=== PATIENT | male | born 1955 | race Caucasian/White ===

== ENCOUNTER 2017-09-18 17:46 | Emergency (ER) | payer OTHER ==
--- NOTE | 2017-09-18 17:51 | PDOC ---
Rapid Medical Evaluation Time Seen by Provider: 09/18/17 17:48 Medical Evaluation: Allergies Allergy/AdvReac Type Severity Reaction Status Date / Time No Known Allergies Allergy Verified 04/06/16 23:09 09/18/17 17:48 I have performed a brief in-person evaluation of this patient. The patient presents with a chief complaint of: gradually worsening frontal headache since this am, vomit x 2 after 3pm, no visual changes , no dizziness Pertinent physical exam findings: vss I have ordered the following: none The patient will proceed to the ED for further evaluation.
[2017-09-18 17:52] VITALS: BP 139/85; PULSE 84; TEMP 97.7; BMI 28.3
--- NOTE | 2017-09-18 18:22 | PDOC ---
History of Present Illness - General Chief Complaint: Headache Stated Complaint: HEADACHE Time Seen by Provider: 09/18/17 17:48 - History of Present Illness Initial Comments: 09/18/17 20:00 The patient is a 62 year old male with a history of HTN, DM, HLD, CAD who presents for evaluation of headache with associated nausea and vomiting. The patient reports gradual onset of a throbbing frontal headache beginning at 12pm today. He noted some associated nausea and two episodes of non-bilious, non- bloody vomiting prompting his presentation to the ED today. He denies photophobia or phonophobia. He denies fevers, chills, SOB, chest pain, numbness , weakness, abdominal pain, or changes with urination or bowel movements. Past History - Past Medical History Allergies/Adverse Reactions: Allergies Allergy/AdvReac Type Severity Reaction Status Date / Time No Known Allergies Allergy Verified 09/18/17 17:49 Home Medications: Ambulatory Orders Amlodipine Besylate 10 mg PO DAILY 04/06/16 Lisinopril [Prinivil -] 40 mg PO DAILY 04/06/16 Metformin HCl [Metformin HCl ER] 500 mg PO BID 04/06/16 Aspirin [ASA -] 81 mg PO DAILY 09/18/17 Atorvastatin Ca [Lipitor] 80 mg PO HS 09/18/17 Cholecalciferol (Vitamin D3) [Vitamin D3] 5,000 unit PO DAILY 09/18/17 Clopidogrel Bisulfate [Clopidogrel] 75 mg PO DAILY 09/18/17 Metoprolol Succinate [Toprol Xl -] 25 mg PO DAILY 09/18/17 Cardiac Disorders: Yes ("MINOR HEART ATTACK") CVA: No COPD: No DVT: No Diabetes: Yes HTN: Yes Hypercholesterolemia: Yes - Immunization History Immunization Up to Date: Yes - Suicide/Smoking/Psychosocial Hx Smoking Status: No Smoking History: Never smoked Have you smoked in the past 12 months: No Number of Cigarettes Smoked Daily: 0 Cigars Per Day: 0 Information on smoking cessation initiated: No Hx Alcohol Use: No Drug/Substance Use Hx: No Substance Use Type: None Review of Systems - Review of Systems Comments:: 09/18/17 20:03 Constitutional: No fevers, chills, fatigue, malaise HEENT: No Rhinorrhea, nasal congestion, visual changes Cardiovascular: No chest pain, syncope, palpitations, lightheadedness Respiratory: No Cough, SOB, Hemoptysis, Gastrointestinal: Nausea, vomiting. No Abdominal pain, Constipation, Diarrhea, Melena Genitourinary: No Dysuria, Frequency, Urgency, Hesitancy, Hematuria, Flank pain Musculoskeletal: No Myalgia, arthralgia Skin: No rashes, bruising, pallor Neurologic: Headache. No Dizziness, Numbness, Weakness, or Tingling Psychiatric: No Hallucinations. No SI or HI *Physical Exam - Vital Signs Last Vital Signs Temp Pulse Resp BP Pulse Ox 97.7 F 84 16 139/85 97 09/18/17 17:49 09/18/17 17:49 09/18/17 17:49 09/18/17 17:49 09/18/17 17:49 - Physical Exam Comments: 09/18/17 20:04 General Appearance: Nourished. No Apparent Distress HEENT: EOMI, GWENDOLYN. No Pharyngeal Erythema, Tonsillar Exudate, Tonsillar Erythema Neck: No Cervical Lymphadenopathy Respiratory/Chest: Lungs Clear, Normal Breath Sounds. No Crackles, Rales, Rhonchi, Wheezing Cardiovascular: Regular Rhythm, Regular Rate. No Murmur, Gallops, Rubs Gastrointestinal/Abdominal: Normal Bowel Sounds, Soft. No Guarding, Rebound, Tenderness Musculoskeletal: No CVA Tenderness Extremity: Normal Capillary Refill Integumentary: Normal Color, Dry, Warm Neurologic: interactive video technician II-XII NML intact, Fully Oriented, Alert, Normal Mood/Affect, Normal Response, Motor Strength 5/5. Normal Finger to Nose and Heel to Guy ED Treatment Course - LABORATORY CBC & Chemistry Diagram: 09/18/17 19:00 09/18/17 19:00 Medical Decision Making - Medical Decision Making 09/18/17 20:04 The patient is a 62 year old male with a history of HTN, DM, HLD, CAD who presents for evaluation of headache with associated nausea and vomiting. Differential includes but is not limited to: Migraine headache, acs, infectious , metabolic derangement. Given the patient's normal physical exam and history of gradual onset headache, it is likely his symptoms are due to a migraine headache. However, given his comorbidities, we will obtain a cbc, cmp, troponin , and EKG to evaluate for other etiologies. We will treat his symptoms with tylenol, reglan, and benadryl here in the ED. We will continue to monitor and reassess. 09/18/17 21:28 The patient reports significant improvement in his symptoms. CBC, cmp, troponin , EKG are unremarkable. It is likely the patient's symptoms were due to a migraine headache. We are comfortable discharging the patient home at this time with primary care provider follow up. We discussed the results and the plan with the patient who voiced understanding and is agreeable with the plan. *DC/Admit/Observation/Transfer Diagnosis at time of Disposition: Headache Qualifiers: Headache type: unspecified Headache chronicity pattern: unspecified pattern Intractability: not intractable Qualified Code(s): R51 - Headache - Discharge Dispostion Disposition: HOME Condition at time of disposition: Improved Admit: No - Referrals Referrals: Remi Ibarra MD [Primary Care Provider] - - Patient Instructions Printed Discharge Instructions: DI for Migraine Additional Instructions: Please return to the ER if you experience concerning or worsening symptoms including numbness or weakness, chest pain, or difficulty breathing. You were seen in the ER for headache. Your lab results were all normal. You may use ibuprofen as needed at home for pain management. It is important that you call to schedule a follow up appointment with your primary care provider in 3-4 days to discuss your ER visit and further management of your symptoms. Por favor regrese a la romaine de emergencias si experimenta o empeora los sntomas , incluyendo entumecimiento o debilidad, dolor torcico o dificultad respiratoria. Te vieron en urgencias por dolor de rosalia. Los resultados de aleman laboratorio betsey normales. Usted puede usar ibuprofeno wil sea necesario en casa para el manejo del dolor. Es importante que llame para programar robe freddy de seguimiento con alemna proveedor de atencin primaria en 3-4 wilkerson para discutir aleman visita de ER y la administracin posterior de joss sntomas. - Post Discharge Activity
[2017-09-18] MEDS ORDERED: METOCLOPRAMIDE HCL INJECTION 10 MG/2 ML VIAL IVPUSH ONE (18:41)
[2017-09-18] MEDS ORDERED: ACETAMINOPHEN 325 MG TABLET (FP) PO ONE (18:41)
[2017-09-18] MEDS ORDERED: METOCLOPRAMIDE HCL INJECTION 10 MG/2 ML VIAL ONE (18:54)
[2017-09-18] MEDS ORDERED: ACETAMINOPHEN 325 MG TABLET (FP) ONE (18:54)
--- NOTE | 2017-09-18 19:13 | PDOC ---
Attending Attestation - Resident Resident Name: Alverto Yu - ED Attending Attestation I have performed the following: I have examined & evaluated the patient, The case was reviewed & discussed with the resident, I agree w/resident's findings & plan, Exceptions are as noted - HPI HPI: 09/18/17 19:11 62 yo Male presents with headache that started today and he vomited. the headache is frontal headache,no visual changes,no chest pain,no fever,no chills, no neck pain. Patient has a history of hypertension associated take his high blood pressure medicines in the morning. He did not take anything [id number] or prescription to relieve his headache pain prior to arrival 09/18/17 21:55
[2017-09-18 19:25] LABS: BASOPHIL 1.5 % (0-2.0); EOSINOPHIL 1.2 % (0-4.5); MCH 28.4 pg (25.7-33.7); MCHC 33.4 g/dl (32.0-35.9); MEAN CELL VOLUME 85.1 fl (80-96); MEAN PLT VOLUME 8.8 fl (7.5-11.1); NEUTROPHILS 64.8 % (42.8-82.8); PLATELET COUNT 250 K/MM3 (134-434)
[2017-09-18 21:01] LABS: ALBUMIN 3.9 g/dl (3.4-5.0); ANION GAP 8 (8-16); CALCIUM 9.2 mg/dL (8.5-10.1); CO2 28 mmol/L (21-32); CREATININE 0.8 mg/dL (0.7-1.3); GLUCOSE,RANDOM 113 mg/dL (74-106); SGOT/AST 13 U/L (15-37); SGPT/ALT 27 U/L (12-78)
[2017-09-18 21:06] LABS: ALK PHOS 79 U/L (45-117); BILIRUBIN,TOTAL 0.5 mg/dL (0.2-1.0); CPK 102 IU/L (39-308); TOT PROT 7.6 g/dl (6.4-8.2); TROPONIN I < 0.02 ng/ml (0.00-0.05)
--- NOTE | 2017-09-19 13:07 | EKG ---
Test Reason : Blood Pressure : / mmHG Vent. Rate : 073 BPM Atrial Rate : 073 BPM P-R Int : 160 ms QRS Dur : 094 ms QT Int : 344 ms P-R-T Axes : 046 020 -19 degrees QTc Int : 378 ms NORMAL SINUS RHYTHM T WAVE ABNORMALITY, CONSIDER INFERIOR ISCHEMIA ABNORMAL ECG WHEN COMPARED WITH ECG OF 06-APR-2016 23:08, NO SIGNIFICANT CHANGE WAS FOUND Confirmed by DOUGLAS VILA MD ([id number]) on 09/19/2017 1:07:23 PM Referred By: Confirmed By:DOUGLAS VILA MD
== END 2017-09-18 22:01 | disposition home or self-care (01) ==
LOC: JER 17:46
PROC: 3E033GC Introduction of Other Therapeutic Substance into Peripheral Vein, Percutaneous Approach (ICD-10-PCS; principal; 2017-09-18)
DX: R51 Headache (principal); I10 Essential (primary) hypertension; E11.9 Type 2 diabetes mellitus without complications; Z79.84 Long term (current) use of oral hypoglycemic drugs; E78.00 Pure hypercholesterolemia, unspecified; I25.10 Atherosclerotic heart disease of native coronary artery without angina pectoris; Z79.82 Long term (current) use of aspirin
CPT/HCPCS: 36415; 80053; 82550; 84484; 85025; 93005; 93010; 96374; 96375; 99283-25

== ENCOUNTER 2021-05-15 00:55 | Emergency (ER) | payer OTHER ==
[2021-05-15 01:08] VITALS: TEMP 97.3; BMI 29.2
[2021-05-15] MEDS ORDERED: SODIUM CHLORIDE 0.9% 500 ML INFUS.BAG IV ONE (01:42)
[2021-05-15 01:58] LABS: BASO % 0.9 % (0-2.0); EOS % 1.4 % (0-4.5); HEMATOCRIT 44.4 % (35.4-49); HEMOGLOBIN 14.8 GM/dL (11.7-16.9); LYMPH % 23.4 % (8-40); MCH 28.3 pg (25.7-33.7); MCHC 33.3 g/dl (32.0-35.9); MEAN PLT VOLUME 8.9 fl (7.5-11.1); MONO % 7.4 % (3.8-10.2); NEUT % 66.9 % (42.8-82.8); PLATELET COUNT 229 10^3/uL (134-434); RBC 5.22 M/mm3 (4.00-5.60); RDW 13.6 % (11.9-15.9); WHITE BLOOD COUNT 5.2 K/mm3 (4.0-10.0)
[2021-05-15 02:20] LABS: CALCIUM 8.8 mg/dL (8.5-10.1)
[2021-05-15 02:21] LABS: ALBUMIN 4.1 g/dl (3.4-5.0); BLOOD UREA NITROGEN 12.8 mg/dL (7-18)
[2021-05-15 02:24] LABS: CREATININE 1.1 mg/dL (0.55-1.3)
[2021-05-15 02:25] LABS: BILIRUBIN,TOTAL 0.3 mg/dL (0.2-1); TOT PROT 7.9 g/dl (6.4-8.2)
[2021-05-15 04:15] VITALS: BP 130/76; PULSE 88
== END 2021-05-15 04:13 | disposition home or self-care (01) ==
LOC: JER 00:55
DX: K90.9 Intestinal malabsorption, unspecified (principal); R19.7 Diarrhea, unspecified
CPT/HCPCS: 36415; 71045-TC-FY; 80053; 82010; 82962; 85025; 99284-25

== ENCOUNTER 2021-06-15 13:24 | Emergency (ER) | payer OTHER ==
[2021-06-15 13:41] VITALS: BP 169/85; PULSE 78; TEMP 97.9; BMI 20.7
== END 2021-06-15 14:06 | disposition home or self-care (01) ==
LOC: JER 13:24
DX: Z76.0 Encounter for issue of repeat prescription (principal)
CPT/HCPCS: 99281-25

== ENCOUNTER 2021-07-23 09:41 | Inpatient (IN) | payer OTHER ==
[2021-07-23] MEDS ORDERED: VANCOMYCIN 1 GM in D5W (PRE-DOCKED) 1,000 MG/250 ML IVPB ONE (11:47)
[2021-07-23] MEDS ORDERED: PIPERACILLIN/TAZOB 4.5 GM 4.5 GM in DEXTROSE 5%-WATER 100 ML IVPB ONE (11:48)
[2021-07-23] MEDS ORDERED: ACETAMINOPHEN 1000 MG/100 ML VIAL (NON FORMULARY) IVPB ONE (11:51)
[2021-07-23] MEDS ORDERED: ACETAMINOPHEN INJECTION 100 ML IVPB ONE (11:56)
[2021-07-23] MEDS ORDERED: PIPERACILLIN/TAZOB 4.5 GM 4.5 GM/100 ML BAG IVPB ONE (11:56)
[2021-07-23] MEDS ORDERED: VANCOMYCIN 1 GRAM (PRE-DOCKED) 1,000 MG/250 ML BAG IVPB ONE (11:57)
[2021-07-23 13:03] LABS: CALCIUM 8.8 mg/dL (8.5-10.1)
[2021-07-23 13:04] LABS: ALBUMIN 3.6 g/dl (3.4-5.0); BLOOD UREA NITROGEN 9.7 mg/dL (7-18)
[2021-07-23 13:07] LABS: CREATININE 0.9 mg/dL (0.55-1.3)
[2021-07-23 13:08] LABS: BILIRUBIN,TOTAL 0.6 mg/dL (0.2-1); TOT PROT 7.4 g/dl (6.4-8.2)
[2021-07-23 13:44] LABS: BASO % 0.8 % (0-2.0); EOS % 1.6 % (0-4.5); HEMATOCRIT 45.5 % (35.4-49); HEMOGLOBIN 15.3 GM/dL (11.7-16.9); LYMPH % 31.5 % (8-40); MCH 28.4 pg (25.7-33.7); MCHC 33.7 g/dl (32.0-35.9); MEAN CELL VOLUME 84.4 fl (80-96); MEAN PLT VOLUME 9.5 fl (7.5-11.1); NEUT % 58.1 % (42.8-82.8); PLATELET COUNT 204 10^3/uL (134-434); RBC 5.39 M/mm3 (4.00-5.60); RDW 13.4 % (11.9-15.9); WHITE BLOOD COUNT 5.3 K/mm3 (4.0-10.0)
[2021-07-23 14:36] LABS: ERYTHROCYTE SEDIMENTATION RATE 23 mm/hr (0-20)
[2021-07-23] MEDS ORDERED: DALBAVANCIN HCL 1,500 MG in DEXTROSE 5%-WATER - 500 ML IVPB ONE (16:06)
[2021-07-23] MEDS ORDERED: DALBAVANCIN HCL 500 MG VIAL (RESTRICTED TO ID ONLY) IVPB ONE (16:12)
[2021-07-23] MEDS ORDERED: ONDANSETRON 4 MG/2 ML VIAL IVPUSH ONE (18:39)
[2021-07-23] MEDS ORDERED: ONDANSETRON 4 MG/2 ML VIAL ONE (18:56)
[2021-07-23 19:46] LABS: LACTIC ACID 2.2 mmol/L (0.4-2.0)
[2021-07-24 00:24] VITALS: BMI 26.7
[2021-07-24] MEDS ORDERED: ACETAMINOPHEN 325 MG TABLET (FP) PO PRN (01:09)
[2021-07-24] MEDS ORDERED: DEXTROSE 5%-WATER - 50 ML IVPB ONE ×3 (02:56→17:01)
[2021-07-24] MEDS ORDERED: PIPERACILLIN/TAZOBACTAM 3.375 GM VIAL IVPB ONE ×3 (02:56→17:01)
[2021-07-24] MEDS: PIPERACILLIN/TAZOB 3.375 GM 3.375 GM in DEXTROSE 5%-WATER - 50 ML IVPB SCH ×3 (03:02→17:18)
[2021-07-24] MEDS: INSULIN SLIDING SCALE (NOVOLOG) 1 VIAL SQ SCH ×4 (06:11→21:52)
[2021-07-24] MEDS ORDERED: INSULIN (NOVOLOG) ASPART 100 UNITS/ML 10ML VIAL ONE ×2 (06:29→21:14)
[2021-07-24 07:05] LABS: BASO % 0.4 % (0-2.0); EOS % 0.5 % (0-4.5); HEMATOCRIT 44.5 % (35.4-49); HEMOGLOBIN 15.1 GM/dL (11.7-16.9); LYMPH % 10.6 % (8-40); MCH 28.4 pg (25.7-33.7); MCHC 33.9 g/dl (32.0-35.9); MEAN CELL VOLUME 83.8 fl (80-96); MEAN PLT VOLUME 9.6 fl (7.5-11.1); MONO % 5.6 % (3.8-10.2); NEUT % 82.9 % (42.8-82.8); PLATELET COUNT 186 10^3/uL (134-434); RBC 5.31 M/mm3 (4.00-5.60); RDW 13.7 % (11.9-15.9); WHITE BLOOD COUNT 8.5 K/mm3 (4.0-10.0)
[2021-07-24 07:52] LABS: ALBUMIN 3.3 g/dl (3.4-5.0); BLOOD UREA NITROGEN 13.8 mg/dL (7-18); CALCIUM 8.1 mg/dL (8.5-10.1)
[2021-07-24 07:55] LABS: CREATININE 1.6 mg/dL (0.55-1.3)
[2021-07-24 07:57] LABS: BILIRUBIN,TOTAL 0.8 mg/dL (0.2-1)
[2021-07-24] MEDS: ENOXAPARIN NA (PORCINE) 40 MG/0.4 ML DISP.SYRIN SQ SCH (10:39)
[2021-07-24] MEDS: LISINOPRIL 20 MG TABLET PO SCH (10:39)
[2021-07-24 14:38] LABS: URINE APPEARANCE CLOUDY; URINE BILIRUBIN NEGATIVE (NEGATIVE); URINE COLOR YELLOW; URINE GLUCOSE (UA) 2+ (NEGATIVE); URINE KETONE NEGATIVE (NEGATIVE); URINE LEUK ESTERASE NEGATIVE (NEGATIVE); URINE NITRITE NEGATIVE (NEGATIVE); URINE PROTEIN TRACE (NEGATIVE); URINE UROBILINOGEN 0.2 mg/dL (0.2-1.0)
[2021-07-24] MEDS: SODIUM CHLORIDE 1,000 ML IV SCH (16:25)
[2021-07-24] MEDS ORDERED: INSULIN (LEVEMIR) 100 UNITS/ML UNITS SQ SCH (22:00)
[2021-07-24] MEDS ORDERED: ATORVASTATIN CA 80 MG TABLET (FP) PO SCH (22:00)
[2021-07-24 23:33] VITALS: TEMP 98.5
[2021-07-25] MEDS: SODIUM CHLORIDE 1,000 ML IV SCH (06:08)
[2021-07-25] MEDS: INSULIN SLIDING SCALE (NOVOLOG) 1 VIAL SQ SCH ×3 (06:21→17:13)
[2021-07-25 08:27] LABS: EOS % 2.9 % (0-4.5); HEMATOCRIT 45.4 % (35.4-49); HEMOGLOBIN 15.4 GM/dL (11.7-16.9); LYMPH % 31.5 % (8-40); MCH 28.7 pg (25.7-33.7); MCHC 33.9 g/dl (32.0-35.9); MEAN CELL VOLUME 84.6 fl (80-96); MEAN PLT VOLUME 9.4 fl (7.5-11.1); MONO % 12.3 % (3.8-10.2); NEUT % 52.3 % (42.8-82.8); PLATELET COUNT 212 10^3/uL (134-434); RBC 5.37 M/mm3 (4.00-5.60); RDW 13.7 % (11.9-15.9); WHITE BLOOD COUNT 5.5 K/mm3 (4.0-10.0)
[2021-07-25 08:58] LABS: CALCIUM 8.6 mg/dL (8.5-10.1)
[2021-07-25 08:59] LABS: BLOOD UREA NITROGEN 16.4 mg/dL (7-18)
[2021-07-25 09:02] LABS: CREATININE 1.5 mg/dL (0.55-1.3)
[2021-07-25] MEDS ORDERED: DEXTROSE 5%-WATER - 50 ML IVPB ONE (09:52)
[2021-07-25] MEDS ORDERED: cefTRIAXone SODIUM 1 GM VIAL ONE (09:52)
[2021-07-25] MEDS ORDERED: CEFTRIAXONE 1 GM in DEXTROSE 5%-WATER - 50 ML IVPB SCH (10:00)
[2021-07-25] MEDS: ENOXAPARIN NA (PORCINE) 40 MG/0.4 ML DISP.SYRIN SQ SCH (10:22)
[2021-07-25] MEDS: LISINOPRIL 20 MG TABLET PO SCH (10:22)
[2021-07-25 10:29] VITALS: BP 159/88; PULSE 82
== END 2021-07-25 18:41 | disposition home health service (06) | DRG 383 ==
LOC: JER 09:41 → JERBED 17:54 → J7W 23:52
PROVIDERS: ADMIT Internal Medicine
DX: L03.115 Cellulitis of right lower limb (principal); E11.65 Type 2 diabetes mellitus with hyperglycemia; E78.5 Hyperlipidemia, unspecified; I10 Essential (primary) hypertension; E11.622 Type 2 diabetes mellitus with other skin ulcer; L97.818 Non-pressure chronic ulcer of other part of right lower leg with other specified severity; N17.9 Acute kidney failure, unspecified; W18.39XA Other fall on same level, initial encounter; Y93.89 Activity, other specified
CPT/HCPCS: 36415; 71045-TC-FY; 73590-TC-RT-FY; 73610-TC-RT-FY; 80048; 80053; 80061; 81003; 82962; 83605; 84484; 85025; 85651; 87040; 93005; 93010; 93970-TC; 97116-GP; 97161-GP; 99285-25; C9803; J0131; J0875; U0003; U0005

== ENCOUNTER 2021-09-29 09:30 | Observation (INO) | payer OTHER ==
[2021-09-29 09:38] VITALS: BMI 28.3
[2021-09-29] MEDS ORDERED: SODIUM CHLORIDE 0.9% 1000 ML INFUS.BAG IV ONE (10:14)
[2021-09-29] MEDS ORDERED: ACETAMINOPHEN 1000 MG/100 ML VIAL IVPB ONE (10:14)
[2021-09-29] MEDS ORDERED: LISINOPRIL 20 MG TABLET PO ONE (10:28)
[2021-09-29] MEDS ORDERED: ACETAMINOPHEN INJECTION 100 ML IVPB ONE (10:31)
[2021-09-29] MEDS ORDERED: LISINOPRIL 20 MG TABLET ONE (10:31)
[2021-09-29 11:53] LABS: BASO % 0.8 % (0-2.0); HEMATOCRIT 44.5 % (35.4-49); HEMOGLOBIN 14.8 GM/dL (11.7-16.9); LYMPH % 34.7 % (8-40); MCH 28.4 pg (25.7-33.7); MCHC 33.2 g/dl (32.0-35.9); MEAN CELL VOLUME 85.4 fl (80-96); MEAN PLT VOLUME 9.6 fl (7.5-11.1); MONO % 7.5 % (3.8-10.2); PLATELET COUNT 215 10^3/uL (134-434); RBC 5.21 M/mm3 (4.00-5.60); RDW 14.5 % (11.9-15.9); WHITE BLOOD COUNT 3.8 K/mm3 (4.0-10.0)
[2021-09-29 11:54] LABS: URINE APPEARANCE CLEAR; URINE BILIRUBIN NEGATIVE (NEGATIVE); URINE COLOR YELLOW; URINE GLUCOSE (UA) NEGATIVE (NEGATIVE); URINE KETONE NEGATIVE (NEGATIVE); URINE LEUK ESTERASE NEGATIVE (NEGATIVE); URINE NITRITE NEGATIVE (NEGATIVE); URINE PROTEIN NEGATIVE (NEGATIVE); URINE UROBILINOGEN 0.2 mg/dL (0.2-1.0)
[2021-09-29 12:40] LABS: INR 1.05 (0.83-1.09); PROTHROMBIN TIME (PATIENT) 11.8 SEC (9.7-13.0)
[2021-09-29 12:43] LABS: ACTIVATED PTT 31.5 SECONDS (25.2-36.5)
[2021-09-29 13:09] LABS: ALBUMIN 3.7 g/dl (3.4-5.0); BILIRUBIN,TOTAL 0.4 mg/dL (0.2-1); BLOOD UREA NITROGEN 14.2 mg/dL (7-18); CALCIUM 9.1 mg/dL (8.5-10.1); CREATININE 1.1 mg/dL (0.55-1.3); TOT PROT 7.6 g/dl (6.4-8.2)
[2021-09-29] MEDS ORDERED: MAGNESIUM CITRATE 300 ML BOTTLE PO ONE (16:13)
[2021-09-29] MEDS ORDERED: MAGNESIUM CITRATE 300 ML BOTTLE ONE (16:33)
[2021-09-29] MEDS ORDERED: LISINOPRIL 20 MG TABLET PO SCH (22:26)
[2021-09-29] MEDS: POLYETHYLENE GLYCOL (HEALTHYLAX) 3350 17 GM PACKET PO SCH (23:25)
[2021-09-29] MEDS: TAMSULOSIN HCL 0.4 MG CAP PO SCH (23:25)
[2021-09-29] MEDS: DOCUSATE SODIUM 100 MG CAPSULE (FP) PO SCH (23:25)
[2021-09-29] MEDS: ATORVASTATIN CA 80 MG TABLET (FP) PO SCH (23:25)
[2021-09-29] MEDS: INSULIN SLIDING SCALE (NOVOLOG) 1 VIAL SQ SCH (23:31)
[2021-09-29] MEDS ORDERED: amLODIPine BESYLATE 5 MG TABLET (FP) PO ONE (23:38)
[2021-09-30] MEDS: DOCUSATE SODIUM 100 MG CAPSULE (FP) PO SCH ×3 (06:00→21:54)
[2021-09-30] MEDS: POLYETHYLENE GLYCOL (HEALTHYLAX) 3350 17 GM PACKET PO SCH ×4 (06:00→22:15)
[2021-09-30] MEDS: INSULIN SLIDING SCALE (NOVOLOG) 1 VIAL SQ SCH ×4 (06:00→22:02)
[2021-09-30 07:48] LABS: BASO % 0.4 % (0-2.0); EOS % 0.4 % (0-4.5); HEMATOCRIT 41.7 % (35.4-49); HEMOGLOBIN 13.8 GM/dL (11.7-16.9); LYMPH % 24.6 % (8-40); MCH 28.1 pg (25.7-33.7); MCHC 33.1 g/dl (32.0-35.9); MEAN CELL VOLUME 84.9 fl (80-96); MEAN PLT VOLUME 9.5 fl (7.5-11.1); NEUT % 67.6 % (42.8-82.8); PLATELET COUNT 207 10^3/uL (134-434); RBC 4.91 M/mm3 (4.00-5.60); RDW 14.6 % (11.9-15.9); WHITE BLOOD COUNT 6.1 K/mm3 (4.0-10.0)
[2021-09-30] MEDS: LISINOPRIL 20 MG TABLET PO SCH (10:26)
[2021-09-30] MEDS: FINASTERIDE 5 MG TABLET (FP) PO SCH (10:27)
[2021-09-30] MEDS: ENOXAPARIN NA (PORCINE) 40 MG/0.4 ML DISP.SYRIN SQ SCH (10:27)
[2021-09-30 12:11] LABS: ALBUMIN 3.4 g/dl (3.4-5.0); BILIRUBIN,TOTAL 0.6 mg/dL (0.2-1); BLOOD UREA NITROGEN 12.1 mg/dL (7-18); CALCIUM 8.6 mg/dL (8.5-10.1); CREATININE 0.9 mg/dL (0.55-1.3); MAGNESIUM 2.8 mg/dL (1.8-2.4); PHOSPHOROUS 3.2 mg/dL (2.5-4.9)
[2021-09-30] MEDS: ATORVASTATIN CA 80 MG TABLET (FP) PO SCH (21:54)
[2021-09-30] MEDS: TAMSULOSIN HCL 0.4 MG CAP PO SCH (21:54)
[2021-10-01] MEDS: POLYETHYLENE GLYCOL (HEALTHYLAX) 3350 17 GM PACKET PO SCH ×3 (05:37→21:49)
[2021-10-01] MEDS: DOCUSATE SODIUM 100 MG CAPSULE (FP) PO SCH ×3 (05:37→21:49)
[2021-10-01] MEDS: INSULIN SLIDING SCALE (NOVOLOG) 1 VIAL SQ SCH ×4 (06:13→21:51)
[2021-10-01 07:29] LABS: HEMATOCRIT 41.5 % (35.4-49); HEMOGLOBIN 13.8 GM/dL (11.7-16.9); MCH 28.3 pg (25.7-33.7); MCHC 33.3 g/dl (32.0-35.9); MEAN CELL VOLUME 85.1 fl (80-96); MEAN PLT VOLUME 9.6 fl (7.5-11.1); PLATELET COUNT 190 10^3/uL (134-434); RBC 4.88 M/mm3 (4.00-5.60); RDW 14.6 % (11.9-15.9); WHITE BLOOD COUNT 4.4 K/mm3 (4.0-10.0)
[2021-10-01] MEDS: TAMSULOSIN HCL 0.4 MG CAP PO SCH ×3 (07:46→21:49)
[2021-10-01 08:07] LABS: CALCIUM 8.6 mg/dL (8.5-10.1)
[2021-10-01 08:08] LABS: ALBUMIN 3.1 g/dl (3.4-5.0); BLOOD UREA NITROGEN 12.8 mg/dL (7-18)
[2021-10-01 08:12] LABS: TOT PROT 6.8 g/dl (6.4-8.2)
[2021-10-01 08:13] LABS: BILIRUBIN,TOTAL 0.5 mg/dL (0.2-1)
[2021-10-01] MEDS: LISINOPRIL 20 MG TABLET PO SCH (09:38)
[2021-10-01] MEDS: ENOXAPARIN NA (PORCINE) 40 MG/0.4 ML DISP.SYRIN SQ SCH (09:38)
[2021-10-01] MEDS: FINASTERIDE 5 MG TABLET (FP) PO SCH (09:43)
[2021-10-01] MEDS: SODIUM CHLORIDE 1,000 ML IV SCH (13:19)
[2021-10-01] MEDS: ATORVASTATIN CA 80 MG TABLET (FP) PO SCH (21:49)
[2021-10-02] MEDS: POLYETHYLENE GLYCOL (HEALTHYLAX) 3350 17 GM PACKET PO SCH ×2 (05:57→14:52)
[2021-10-02] MEDS: DOCUSATE SODIUM 100 MG CAPSULE (FP) PO SCH ×2 (05:57→14:53)
[2021-10-02] MEDS: INSULIN SLIDING SCALE (NOVOLOG) 1 VIAL SQ SCH ×2 (07:05→11:47)
[2021-10-02] MEDS: TAMSULOSIN HCL 0.4 MG CAP PO SCH (09:00)
[2021-10-02] MEDS: FINASTERIDE 5 MG TABLET (FP) PO SCH (09:19)
[2021-10-02] MEDS: LISINOPRIL 20 MG TABLET PO SCH (09:19)
[2021-10-02] MEDS: ENOXAPARIN NA (PORCINE) 40 MG/0.4 ML DISP.SYRIN SQ SCH (09:19)
[2021-10-02] MEDS: SODIUM CHLORIDE 1,000 ML IV SCH (14:52)
[2021-10-02 15:03] VITALS: BP 156/91; PULSE 93; TEMP 97.9
== END 2021-10-02 17:10 | disposition home health service (06) ==
LOC: JER 09:30 → JERBED 18:48 → J4W 22:06
PROVIDERS: ADMIT Internal Medicine; ATTEND Internal Medicine
PROC: 3E023GC Introduction of Other Therapeutic Substance into Muscle, Percutaneous Approach (ICD-10-PCS; principal; 2021-09-29)
PROC: 3E013VG Introduction of Insulin into Subcutaneous Tissue, Percutaneous Approach (ICD-10-PCS; 2021-09-29)
PROC: 3E033NZ Introduction of Analgesics, Hypnotics, Sedatives into Peripheral Vein, Percutaneous Approach (ICD-10-PCS; 2021-09-29)
PROC: 3E0337Z Introduction of Electrolytic and Water Balance Substance into Peripheral Vein, Percutaneous Approach (ICD-10-PCS; 2021-09-29)
DX: R33.9 Retention of urine, unspecified (principal); K59.00 Constipation, unspecified; I10 Essential (primary) hypertension; E11.9 Type 2 diabetes mellitus without complications; Z86.73 Personal history of transient ischemic attack (TIA), and cerebral infarction without residual deficits; Z29.9 Encounter for prophylactic measures, unspecified
CPT/HCPCS: 36415; 70450-TC; 74177-TC; 80053; 81003; 82962; 83690; 83735; 84100; 84484; 85025; 85027; 85610; 85730; 86850; 86900; 86901; 87086; 93005; 93010; 96372; 96374; 99285-25; C9803; G0378; J0131; Q9967; U0003; U0005

== ENCOUNTER 2021-10-07 12:05 | Emergency (ER) | payer OTHER ==
[2021-10-07 12:36] VITALS: BMI 27.3
[2021-10-07] MEDS ORDERED: SODIUM PHOSPHATE/NA BIPHOS 133 ML ENEMA PR ONE (13:26)
[2021-10-07] MEDS ORDERED: LACTATED RINGERS SOLUTION 1000 ML INFUS.BAG IV ONE (13:38)
[2021-10-07 15:20] VITALS: BP 153/84; TEMP 98.6
[2021-10-07 17:51] VITALS: PULSE 99
== END 2021-10-07 18:26 | disposition home or self-care (01) ==
LOC: JER 12:05
DX: K59.00 Constipation, unspecified (principal)
CPT/HCPCS: 93005; 93010; 99284-25

== ENCOUNTER 2021-10-09 12:45 | Emergency (ER) | payer OTHER ==
[2021-10-09 13:21] VITALS: TEMP 98.1; BMI 26.4
[2021-10-09] MEDS ORDERED: ACETAMINOPHEN 500 MG TABLET (FP) PO ONE (13:41)
[2021-10-09] MEDS ORDERED: ACETAMINOPHEN 325 MG TABLET (FP) ONE (13:50)
[2021-10-09 14:20] LABS: BASO % 0.4 % (0-2.0); EOS % 0.1 % (0-4.5); HEMATOCRIT 40.1 % (35.4-49); HEMOGLOBIN 13.5 GM/dL (11.7-16.9); LYMPH % 7.1 % (8-40); MCH 28.1 pg (25.7-33.7); MCHC 33.6 g/dl (32.0-35.9); MEAN CELL VOLUME 83.6 fl (80-96); MEAN PLT VOLUME 8.9 fl (7.5-11.1); MONO % 4.7 % (3.8-10.2); NEUT % 87.7 % (42.8-82.8); PLATELET COUNT 261 10^3/uL (134-434); RBC 4.79 M/mm3 (4.00-5.60); RDW 14.4 % (11.9-15.9); WHITE BLOOD COUNT 12.3 K/mm3 (4.0-10.0)
[2021-10-09 14:44] LABS: CHLORIDE 100 mmol/L (98-107); SODIUM 136 mmol/L (136-145)
[2021-10-09 14:46] LABS: CALCIUM 8.9 mg/dL (8.5-10.1)
[2021-10-09 14:47] LABS: ANION GAP 10 MMOL/L (8-16); BLOOD UREA NITROGEN 11.4 mg/dL (7-18); CO2 26 mmol/L (21-32); GLUCOSE,RANDOM 193 mg/dL (74-106)
[2021-10-09 14:50] LABS: CREATININE 0.9 mg/dL (0.55-1.3); SGOT/AST 17 U/L (15-37); SGPT/ALT 32 U/L (13-61)
[2021-10-09 14:51] LABS: TOT PROT 7.6 g/dl (6.4-8.2)
[2021-10-09 14:52] LABS: BILIRUBIN,TOTAL 0.4 mg/dL (0.2-1)
[2021-10-09 14:59] LABS: ALK PHOS 109 U/L (45-117)
[2021-10-09 15:51] LABS: EPI CELLS 31 /uL (0-25.1); HYALINE CASTS 1 /uL (0-3.1); URINE APPEARANCE CLEAR; URINE BACTERIA 13 /uL (0-1359); URINE BILIRUBIN NEGATIVE (NEGATIVE); URINE COLOR YELLOW; URINE GLUCOSE (UA) 1+ (NEGATIVE); URINE KETONE NEGATIVE (NEGATIVE); URINE LEUK ESTERASE TRACE (NEGATIVE); URINE NITRITE NEGATIVE (NEGATIVE); URINE PROTEIN 1+ (NEGATIVE); URINE RBC 6 /uL (0-23.9); URINE UROBILINOGEN 0.2 mg/dL (0.2-1.0); URINE WBC 131 /uL (0-25.8)
[2021-10-09 16:44] VITALS: BP 153/94; PULSE 94
== END 2021-10-09 16:30 | disposition home or self-care (01) ==
LOC: JER 12:45
DX: R33.9 Retention of urine, unspecified (principal)
CPT/HCPCS: 36415; 71045-TC-FY; 80053; 81003; 82550; 84484; 85025; 87086; 87186; 93005; 93010; 99285-25

== ENCOUNTER 2021-12-09 17:02 | Emergency (ER) | payer OTHER ==
[2021-12-09 17:11] VITALS: TEMP 97.9; BMI 27.3
[2021-12-09] MEDS ORDERED: LISINOPRIL 20 MG TABLET PO ONE (18:17)
[2021-12-09] MEDS ORDERED: LISINOPRIL 20 MG TABLET ONE (18:34)
[2021-12-09 19:13] VITALS: PULSE 84
[2021-12-09 21:06] LABS: BASO % 1.1 % (0-2.0); EOS % 2.3 % (0-4.5); HEMATOCRIT 40.9 % (35.4-49); HEMOGLOBIN 13.7 GM/dL (11.7-16.9); LYMPH % 36.3 % (8-40); MCHC 33.4 g/dl (32.0-35.9); MEAN CELL VOLUME 83.8 fl (80-96); MEAN PLT VOLUME 8.5 fl (7.5-11.1); MONO % 12.2 % (3.8-10.2); NEUT % 48.1 % (42.8-82.8); PLATELET COUNT 188 10^3/uL (134-434); RBC 4.88 M/mm3 (4.00-5.60); RDW 14.6 % (11.9-15.9); WHITE BLOOD COUNT 3.3 K/mm3 (4.0-10.0)
[2021-12-09 21:34] LABS: ALBUMIN 3.8 g/dl (3.4-5.0); CALCIUM 8.9 mg/dL (8.5-10.1)
[2021-12-09 21:35] LABS: BLOOD UREA NITROGEN 9.2 mg/dL (7-18)
[2021-12-09 21:38] LABS: CREATININE 0.9 mg/dL (0.55-1.3)
[2021-12-09 21:39] LABS: BILIRUBIN,TOTAL 0.3 mg/dL (0.2-1); TOT PROT 7.9 g/dl (6.4-8.2)
[2021-12-09 22:00] VITALS: BP 177/94
== END 2021-12-09 22:00 | disposition home or self-care (01) ==
LOC: JER 17:02
DX: I10 Essential (primary) hypertension (principal)
CPT/HCPCS: 36415; 80053; 84484; 85025; 93005; 93010; 99284-25

== ENCOUNTER 2021-12-29 04:39 | Emergency (ER) | payer OTHER ==
[2021-12-29] MEDS ORDERED: SODIUM CHLORIDE 0.9% 500 ML INFUS.BAG IV ONE (04:53)
[2021-12-29 05:54] LABS: BASO % 0.8 % (0-2.0); EOS % 2.6 % (0-4.5); HEMOGLOBIN 14.6 GM/dL (11.7-16.9); LYMPH % 31.5 % (8-40); MCH 27.6 pg (25.7-33.7); MCHC 32.5 g/dl (32.0-35.9); MEAN CELL VOLUME 84.9 fl (80-96); MEAN PLT VOLUME 8.9 fl (7.5-11.1); MONO % 9.1 % (3.8-10.2); PLATELET COUNT 224 10^3/uL (134-434); RBC 5.31 M/mm3 (4.00-5.60); RDW 14.5 % (11.9-15.9); WHITE BLOOD COUNT 4.5 K/mm3 (4.0-10.0)
[2021-12-29] MEDS ORDERED: morphine CARPU-JECT 4 MG/1 ML DISP.SYRIN IVPUSH ONE (05:59)
[2021-12-29] MEDS ORDERED: ONDANSETRON 4 MG/2 ML VIAL IVPUSH ONE (05:59)
[2021-12-29 06:01] VITALS: PULSE 85; TEMP 97.7; BMI 28.3
[2021-12-29 06:14] LABS: INR 1.09 (0.83-1.09); PROTHROMBIN TIME (PATIENT) 12.5 SEC (9.7-13.0)
[2021-12-29] MEDS ORDERED: morphine SULFATE 4 MG/ML VIAL ONE (06:16)
[2021-12-29 06:17] LABS: ACTIVATED PTT 33.4 SECONDS (25.2-36.5)
[2021-12-29] MEDS ORDERED: ONDANSETRON 4 MG/2 ML VIAL ONE (06:17)
[2021-12-29 06:24] LABS: CALCIUM 9.2 mg/dL (8.5-10.1)
[2021-12-29 06:25] LABS: ALBUMIN 4.1 g/dl (3.4-5.0); BLOOD UREA NITROGEN 17.3 mg/dL (7-18)
[2021-12-29 06:28] LABS: CREATININE 1.1 mg/dL (0.55-1.3)
[2021-12-29 06:29] LABS: BILIRUBIN,TOTAL 0.7 mg/dL (0.2-1)
[2021-12-29 06:30] LABS: TOT PROT 8.2 g/dl (6.4-8.2)
[2021-12-29] MEDS ORDERED: POLYETHYLENE GLYCOL 3350 119 GM BTL PO ONE (08:59)
[2021-12-29 09:01] LABS: PH,URINE 7.5 (5.0-8.0); URINE APPEARANCE CLEAR; URINE BILIRUBIN NEGATIVE (NEGATIVE); URINE COLOR YELLOW; URINE GLUCOSE (UA) NEGATIVE (NEGATIVE); URINE KETONE NEGATIVE (NEGATIVE); URINE LEUK ESTERASE NEGATIVE (NEGATIVE); URINE NITRITE NEGATIVE (NEGATIVE); URINE PROTEIN NEGATIVE (NEGATIVE); URINE UROBILINOGEN 0.2 mg/dL (0.2-1.0)
[2021-12-29 09:03] VITALS: BP 172/96
[2021-12-29] MEDS ORDERED: POLYETHYLENE GLYCOL (HEALTHYLAX) 3350 17 GM PACKET ONE (09:05)
== END 2021-12-29 10:36 | disposition home or self-care (01) ==
LOC: JER 04:39
DX: R33.9 Retention of urine, unspecified (principal); K59.00 Constipation, unspecified
CPT/HCPCS: 36415; 74177-TC; 80053; 81003; 83605; 84484; 85025; 85610; 85730; 93005; 93010; 99285-25; Q9967

== ENCOUNTER 2021-12-31 22:43 | Emergency (ER) | payer OTHER ==
[2021-12-31 23:09] VITALS: BP 185/112; PULSE 99; TEMP 98.8; BMI 28.3
[2021-12-31] MEDS ORDERED: SODIUM PHOSPHATE/NA BIPHOS 133 ML ENEMA PR ONE (23:47)
[2021-12-31] MEDS ORDERED: POLYETHYLENE GLYCOL (HEALTHYLAX) 3350 17 GM PACKET ONE (23:50)
[2022-01-01] MEDS ORDERED: POLYETHYLENE GLYCOL (HEALTHYLAX) 3350 17 GM PACKET PO SCH (10:00)
[2022-01-01] MEDS ORDERED: POLYETHYLENE GLYCOL (HEALTHYLAX) 3350 17 GM PACKET PO ONE ×2 (23:50)
== END 2022-01-01 00:30 | disposition home or self-care (01) ==
LOC: JER 22:43
DX: K59.00 Constipation, unspecified (principal)
CPT/HCPCS: 99283-25

== ENCOUNTER 2022-03-24 19:15 | Emergency (ER) | payer OTHER ==
[2022-03-24 19:23] VITALS: BP 134/83; PULSE 77; TEMP 97; BMI 28.3
[2022-03-24] MEDS ORDERED: SODIUM PHOSPHATE/NA BIPHOS 133 ML ENEMA PR ONE (20:47)
== END 2022-03-24 22:42 | disposition home or self-care (01) ==
LOC: JER 19:15
DX: K59.00 Constipation, unspecified (principal)
CPT/HCPCS: 99283-25

== ENCOUNTER 2022-09-02 16:01 | Emergency (ER) | payer OTHER ==
[2022-09-02 16:34] VITALS: RESP 18; TEMP 98.2; BMI 27.3
[2022-09-02] MEDS ORDERED: amLODIPine BESYLATE 10 MG TABLET (FP) PO ONE (17:27)
[2022-09-02] MEDS ORDERED: LISINOPRIL 20 MG TABLET PO ONE (17:27)
[2022-09-02] MEDS ORDERED: ACETAMINOPHEN 1000 MG/100 ML BAG IVPB ONE (17:38)
[2022-09-02] MEDS ORDERED: amLODIPine BESYLATE 10 MG TABLET (FP) ONE (17:45)
[2022-09-02] MEDS ORDERED: LISINOPRIL 20 MG TABLET ONE (17:45)
[2022-09-02] MEDS ORDERED: ACETAMINOPHEN INJECTION 100 ML IVPB ONE (17:45)
[2022-09-02 18:04] LABS: BASO % 1.5 % (0-2.0); EOS % 0.1 % (0-4.5); HEMATOCRIT 46.8 % (35.4-49); HEMOGLOBIN 15.7 GM/dL (11.7-16.9); LYMPH % 29.7 % (8-40); MCH 28.8 pg (25.7-33.7); MCHC 33.5 g/dl (32.0-35.9); MEAN CELL VOLUME 85.7 fl (80-96); MEAN PLT VOLUME 8.9 fl (7.5-11.1); MONO % 5.9 % (3.8-10.2); NEUT % 62.8 % (42.8-82.8); PLATELET COUNT 219 10^3/uL (134-434); RBC 5.45 M/mm3 (4.00-5.60); RDW 14.1 % (11.9-15.9); WHITE BLOOD COUNT 5.5 K/mm3 (4.0-10.0)
[2022-09-02 18:23] LABS: CHLORIDE 97 mmol/L (98-107); SODIUM 134 mmol/L (136-145)
[2022-09-02 18:26] LABS: ALBUMIN 3.5 g/dl (3.4-5.0); BLOOD UREA NITROGEN 12.5 mg/dL (7-18); CO2 29 mmol/L (21-32); GLUCOSE,RANDOM 195 mg/dL (74-106)
[2022-09-02 18:30] LABS: CREATININE 1.2 mg/dL (0.55-1.3); SGOT/AST 75 U/L (15-37); SGPT/ALT 22 U/L (13-61)
[2022-09-02 18:32] LABS: BILIRUBIN,TOTAL 0.5 mg/dL (0.2-1); TOT PROT 7.7 g/dl (6.4-8.2)
[2022-09-02 18:33] LABS: ALK PHOS 76 U/L (45-117)
[2022-09-02 18:39] VITALS: BP 153/95; PULSE 101
[2022-09-02 18:41] LABS: ANION GAP 8 MMOL/L (8-16)
== END 2022-09-02 21:05 | disposition home or self-care (01) ==
LOC: JER 16:01
PROC: 3E0333Z Introduction of Anti-inflammatory into Peripheral Vein, Percutaneous Approach (ICD-10-PCS; principal; 2022-09-02)
DX: R51.9 Headache, unspecified (principal); I10 Essential (primary) hypertension
CPT/HCPCS: 36415; 70450-TC; 80053; 84132; 85025; 93005; 93010; 96374; 99285-25

== ENCOUNTER 2024-05-24 00:23 | Emergency (ER) | payer OTHER ==
[2024-05-24 00:46] VITALS: BMI 30.2
[2024-05-24 01:29] LABS: BASO % 1.1 % (0-2.0); EOS % 0.3 % (0-4.5); HEMATOCRIT 40.8 % (35.4-49); HEMOGLOBIN 13.4 GM/dL (11.7-16.9); LYMPH % 15.6 % (8-40); MCH 28.6 pg (25.7-33.7); MCHC 32.9 g/dl (32.0-35.9); MEAN CELL VOLUME 86.9 fl (80-96); MONO % 4.6 % (3.8-10.2); NEUT % 78.4 % (42.8-82.8); PLATELET COUNT 202 10^3/uL (134-434); RDW 13.7 % (11.9-15.9)
[2024-05-24 01:46] LABS: POTASSIUM 3.9 mmol/L (3.5-5.1)
[2024-05-24 01:48] LABS: BLOOD UREA NITROGEN 17.2 mg/dL (7-18); CALCIUM 9.5 mg/dL (8.5-10.1)
[2024-05-24 01:51] LABS: CREATININE 1.1 mg/dL (0.55-1.3)
[2024-05-24 01:53] LABS: BILIRUBIN,TOTAL 0.4 mg/dL (0.2-1); TOT PROT 7.5 g/dl (6.4-8.2)
[2024-05-24 06:05] LABS: LACTIC ACID 2.1 mmol/L (0.4-2.0)
[2024-05-24] MEDS ORDERED: LIDOCAINE HCL 2% JELLY 11 ML TP ONE (06:30)
[2024-05-24 07:17] VITALS: BP 132/85; PULSE 84; RESP 17; TEMP 98
[2024-05-24] MEDS: SODIUM PHOSPHATE/NA BIPHOS 133 ML ENEMA PR ONE (07:20)
== END 2024-05-24 07:23 | disposition home or self-care (01) ==
LOC: JER 00:23
DX: K59.00 Constipation, unspecified (principal); R10.84 Generalized abdominal pain
CPT/HCPCS: 36415; 74177-TC; 80053; 83605; 83690; 85025; 93005; 93010; 99285-25; Q9967

== ENCOUNTER 2024-05-29 09:57 | Emergency (ER) | payer OTHER ==
[2024-05-29 10:10] VITALS: BMI 26.4
[2024-05-29 12:00] LABS: BASO % 0.4 % (0-2.0); EOS % 0.1 % (0-4.5); HEMATOCRIT 38.1 % (35.4-49); LYMPH % 6.2 % (8-40); MCH 28.9 pg (25.7-33.7); MCHC 34.1 g/dl (32.0-35.9); MEAN CELL VOLUME 84.6 fl (80-96); MEAN PLT VOLUME 8.7 fl (7.5-11.1); MONO % 6.8 % (3.8-10.2); NEUT % 86.5 % (42.8-82.8); PLATELET COUNT 193 10^3/uL (134-434); RBC 4.51 M/mm3 (4.00-5.60); RDW 13.5 % (11.9-15.9); WHITE BLOOD COUNT 14.1 K/mm3 (4.0-10.0)
[2024-05-29 12:26] LABS: CALCIUM 8.7 mg/dL (8.5-10.1); POTASSIUM 4.2 mmol/L (3.5-5.1)
[2024-05-29 12:27] LABS: ALBUMIN 3.5 g/dl (3.4-5.0); BLOOD UREA NITROGEN 9.6 mg/dL (7-18)
[2024-05-29 12:32] LABS: BILIRUBIN,TOTAL 0.6 mg/dL (0.2-1)
[2024-05-29 14:39] LABS: EPI CELLS 12 /uL (0-25.1); HYALINE CASTS 8 /uL (0-3.1); URINE APPEARANCE CLOUDY; URINE BACTERIA 5994 /uL (0-1359); URINE BILIRUBIN NEGATIVE (NEGATIVE); URINE COLOR YELLOW; URINE GLUCOSE (UA) NEGATIVE (NEGATIVE); URINE KETONE TRACE (NEGATIVE); URINE LEUK ESTERASE 3+ (NEGATIVE); URINE NITRITE POSITIVE (NEGATIVE); URINE PROTEIN 2+ (NEGATIVE); URINE RBC 2009 /uL (0-23.9); URINE UROBILINOGEN 0.2 mg/dL (0.2-1.0); URINE WBC 3913 /uL (0-25.8)
[2024-05-29] MEDS: SODIUM CHLORIDE 0.9% 500 ML INFUS.BAG IV ONE (14:47)
[2024-05-29] MEDS ORDERED: CEFTRIAXONE 1 GM/50 ML BAG ONE (14:49)
[2024-05-29 15:25] VITALS: BP 159/89; PULSE 104; RESP 20; TEMP 98
== END 2024-05-29 16:30 | disposition home or self-care (01) ==
LOC: JER 09:57
DX: R31.9 Hematuria, unspecified (principal); R10.30 Lower abdominal pain, unspecified; R30.0 Dysuria; R33.9 Retention of urine, unspecified; N39.0 Urinary tract infection, site not specified; T83.091A Other mechanical complication of indwelling urethral catheter, initial encounter
CPT/HCPCS: 36415; 80053; 81003; 85025; 96374; 99284-25

== ENCOUNTER 2024-10-28 17:53 | Emergency (ER) | payer OTHER ==
[2024-10-28 18:04] VITALS: BP 152/86; PULSE 94; RESP 18; TEMP 97.8; BMI 26.4
[2024-10-28] MEDS ORDERED: ACETAMINOPHEN INJECTION 100 ML ONE (19:44)
[2024-10-28] MEDS ORDERED: METOCLOPRAMIDE HCL INJECTION 10 MG/2 ML VIAL ONE (19:44)
[2024-10-28] MEDS ORDERED: ONDANSETRON 4 MG/2 ML VIAL ONE (19:52)
[2024-10-28] MEDS: ACETAMINOPHEN 1000 MG/100 ML BAG IVPB ONE (20:10)
[2024-10-28] MEDS: SODIUM CHLORIDE 0.9% 500 ML INFUS.BAG IV ONE (20:10)
[2024-10-28] MEDS: KETOROLAC TROMETHAMINE 15 MG/ML VIAL IVPUSH ONE ×2 (20:11→22:04)
[2024-10-28] MEDS: ONDANSETRON 4 MG/2 ML VIAL IVPUSH ONE (20:14)
[2024-10-28] MEDS: METOCLOPRAMIDE HCL INJECTION 10 MG/2 ML VIAL IVPB ONE ×2 (20:14)
[2024-10-28 20:20] LABS: BASO % 0.8 % (0-2.0); EOS % 0.4 % (0-4.5); HEMOGLOBIN 13.6 GM/dL (11.7-16.9); LYMPH % 17.5 % (8-40); MCH 27.8 pg (25.7-33.7); MCHC 32.3 g/dl (32.0-35.9); MEAN CELL VOLUME 86.1 fl (80-96); MEAN PLT VOLUME 9.2 fl (7.5-11.1); MONO % 4.7 % (3.8-10.2); NEUT % 76.6 % (42.8-82.8); PLATELET COUNT 218 10^3/uL (134-434); RBC 4.88 M/mm3 (4.00-5.60); WHITE BLOOD COUNT 6.6 K/mm3 (4.0-10.0)
[2024-10-28 20:39] LABS: CALCIUM 9.6 mg/dL (8.5-10.1)
[2024-10-28 20:40] LABS: BLOOD UREA NITROGEN 14.5 mg/dL (7-18)
[2024-10-28 20:43] LABS: CREATININE 1.2 mg/dL (0.55-1.3)
[2024-10-28 20:44] LABS: BILIRUBIN,TOTAL 0.4 mg/dL (0.2-1); TOT PROT 7.6 g/dl (6.4-8.2)
[2024-10-28 21:37] LABS: HIV INTERPRETATION NEGATIVE (NEGATIVE)
[2024-10-28 21:57] LABS: POTASSIUM 3.8 mmol/L (3.5-5.1)
[2024-10-28] MEDS ORDERED: KETOROLAC TROMETHAMINE 15 MG/ML VIAL ONE (21:59)
== END 2024-10-28 22:36 | disposition home or self-care (01) ==
LOC: JER 17:53
PROC: 3E033NZ Introduction of Analgesics, Hypnotics, Sedatives into Peripheral Vein, Percutaneous Approach (ICD-10-PCS; principal; 2024-10-28)
PROC: 3E0333Z Introduction of Anti-inflammatory into Peripheral Vein, Percutaneous Approach (ICD-10-PCS; 2024-10-28)
PROC: 3E033GC Introduction of Other Therapeutic Substance into Peripheral Vein, Percutaneous Approach (ICD-10-PCS; 2024-10-28)
DX: R51.9 Headache, unspecified (principal); W06.XXXA Fall from bed, initial encounter
CPT/HCPCS: 36415; 70450-TC; 80053; 85025; 85651; 86140; 86803; 87389; 93005; 93010; 99285-25; J0131

== ENCOUNTER 2025-02-10 09:57 | Observation (INO) | payer OTHER ==
[2025-02-10 10:09] VITALS: RESP 18; BMI 27.3
[2025-02-10] MEDS ORDERED: ACETAMINOPHEN INJECTION 100 ML ONE (11:12)
[2025-02-10] MEDS ORDERED: MECLIZINE HCL 25 MG TABLET (FP) ONE (11:12)
[2025-02-10] MEDS: MECLIZINE HCL 25 MG TABLET (FP) PO ONE (11:28)
[2025-02-10] MEDS: ACETAMINOPHEN 1000 MG/100 ML BAG IVPB ONE (11:28)
[2025-02-10] MEDS: SODIUM CHLORIDE 1,000 ML IV STA (11:28)
[2025-02-10 11:43] LABS: ABSOLUTE IMMATURE GRANULOCYTES 0.01 x10^3/uL (0.0-0.031); BASOPHILS # 0.02 x10^3/uL (0.01-0.08); EOSINOPHIL % 0.3 % (0.8-7.0); EOSINOPHILS # 0.01 x10^3/uL (0.04-0.54); HEMATOCRIT 43.1 % (40.1-51.0); HEMOGLOBIN 14.1 g/dL (13.7-17.5); MCHC 32.7 g/dl (32.3-36.5); MEAN CELL VOLUME 84.8 fl (79.0-92.2); MONOCYTE # 0.39 x10^3/uL (0.30-0.82); MONOCYTE % 10.5 % (5.3-12.2); PLATELET COUNT 236 x10^3/uL (163-337); RDW 13.2 % (12.2-16.4)
[2025-02-10 12:18] LABS: POTASSIUM 4.7 mmol/L (3.5-5.1)
[2025-02-10 12:35] LABS: ALBUMIN 4.2 g/dl (3.4-5.0); CALCIUM 9.9 mg/dL (8.5-10.1)
[2025-02-10 12:36] LABS: BLOOD UREA NITROGEN 13.6 mg/dL (7-18)
[2025-02-10 12:39] LABS: CREATININE 1.1 mg/dL (0.55-1.3)
[2025-02-10 12:41] LABS: BILIRUBIN,TOTAL 0.8 mg/dL (0.2-1)
[2025-02-10 12:42] LABS: TOT PROT 7.7 g/dl (6.4-8.2)
[2025-02-10 16:12] LABS: HIV INTERPRETATION NEGATIVE (NEGATIVE)
[2025-02-10 16:15] LABS: HCV DIAGNOSTIC IN-HOUSE W/RFLX NON-REACTIVE (NONREACTIVE)
[2025-02-10] MEDS ORDERED: INSULIN ASPART SLIDING SCALE (NOVOLOG) 1 VIAL SQ SCH (16:30)
[2025-02-10 16:56] VITALS: BP 139/76; PULSE 97; TEMP 98.2
[2025-02-10] MEDS ORDERED: ATORVASTATIN CA 80 MG TABLET (FP) PO SCH (22:00)
[2025-02-11] MEDS ORDERED: TAMSULOSIN HCL 0.4 MG CAP PO SCH (08:30)
[2025-02-11] MEDS ORDERED: HYDROCHLOROTHIAZIDE 12.5 MG CAPSULE (FP) PO SCH (10:00)
[2025-02-11] MEDS ORDERED: amLODIPine BESYLATE 10 MG TABLET (FP) PO SCH (10:00)
[2025-02-11] MEDS ORDERED: ENOXAPARIN NA (PORCINE) 40 MG/0.4 ML DISP.SYRIN SQ SCH (10:00)
[2025-02-11] MEDS ORDERED: LISINOPRIL 20 MG TABLET PO SCH (10:00)
== END 2025-02-10 17:05 | disposition home or self-care (01) ==
LOC: JER 09:57 → JERBED 13:36
PROVIDERS: ADMIT Internal Medicine; ATTEND Internal Medicine
PROC: 3E033NZ Introduction of Analgesics, Hypnotics, Sedatives into Peripheral Vein, Percutaneous Approach (ICD-10-PCS; principal; 2025-02-10)
PROC: 3E0337Z Introduction of Electrolytic and Water Balance Substance into Peripheral Vein, Percutaneous Approach (ICD-10-PCS; 2025-02-10)
DX: B02.9 Zoster without complications (principal); R07.89 Other chest pain; I10 Essential (primary) hypertension; E11.9 Type 2 diabetes mellitus without complications; E78.5 Hyperlipidemia, unspecified; N40.0 Benign prostatic hyperplasia without lower urinary tract symptoms
CPT/HCPCS: 36415; 71045-TC-FY; 80053; 84484; 85025; 86803; 87389; 93005; 93010; 96361; 96374; 99285-25; G0378; J0131